=== PATIENT | female | born 1980 | race Caucasian/White ===

== ENCOUNTER 2019-03-23 09:23 | Emergency (ER) | payer OTHER ==
[2019-03-23 09:28] VITALS: BP 134/85; PULSE 82; RESP 20; TEMP 97.5
[2019-03-23 10:27] LABS: Anisocytosis Slight; Basophils % (A) 1 %; Eosinophils # (A) 0.2 k/uL (0-0.7); Eosinophils % (A) 4 %; HCT 40.9 % (34.0-46.0); Hypochromasia Marked; Lymphocytes # (A) 1.6 k/uL (1.0-4.8); Lymphocytes % (A) 27 %; MCH 21.5 pg (25.0-35.0); MCHC 29.3 g/dL (31.0-37.0); MCV 73.4 fL (80.0-100.0); Mean Platelet Volume 7.3; Microcytosis Moderate; Monocytes # (A) 0.3 k/uL (0-1.0); Monocytes % (A) 4 %; Neutrophils # (A) 3.5 k/uL (1.3-7.7); Neutrophils % (A) 61 %; Platelet Count 294 k/uL (150-450); RBC 5.58 m/uL (3.80-5.40); RDW 16.5 % (11.5-15.5); WBC 5.7 k/uL (3.8-10.6)
[2019-03-23 10:29] LABS: Appearance,Urine Cloudy (Clear); Bilirubin,Urine Negative (Negative); Blood,Urine Negative (Negative); Color,Urine Yellow; Glucose,Urine (UA) Negative (Negative); Ketones,Urine Negative (Negative); Leukocyte Esterase,Urine Negative (Negative); Mucus,Urine Many /hpf; Nitrite,Urine Negative (Negative); PH, Urine 5.5 (5.0-8.0); Protein,Urine Trace (Negative); RBC,Urine 1 /hpf (0-5); Specific Gravity,Urine 1.033 (1.001-1.035); Squamous Epithelial Cell,Urine 15 /hpf (0-4)
[2019-03-23 10:32] LABS: ALT 19 U/L (9-52); AST 23 U/L (14-36); African American GFR (CKD) >90 (>60 ml/min/1.73 sqM); Albumin 4.4 g/dL (3.5-5.0); Alkaline Phosphatase 37 U/L (38-126); Amylase 51 U/L (30-110); Anion Gap 10 mmol/L; Blood Urea Nitrogen 10 mg/dL (7-17); Calcium 9.1 mg/dL (8.4-10.2); Carbon Dioxide 22 mmol/L (22-30); Chloride 109 mmol/L (98-107); Glucose 86 mg/dL (74-99); Non-African American GFR(CKD) >90 (>60 ml/min/1.73 sqM); Potassium 4.1 mmol/L (3.5-5.1); Sodium 141 mmol/L (137-145); Total Bilirubin 0.6 mg/dL (0.2-1.3); Total Protein 7.4 g/dL (6.3-8.2)
--- NOTE | 2019-03-23 10:43 | ED ---
Abdominal Pain HPI - General Chief Complaint: Abdominal Pain Stated Complaint: Abd Pain Time Seen by Provider: 03/23/19 09:37 Source: patient, family Mode of arrival: ambulatory - History of Present Illness Initial Comments: 38yo female presenting today for chief complaint of lower pelvic bloating and cramping 1 hour. Patient states that she had severe cramping that radiated t owards her back that began 1 hour prior to arrival. Patient states she has never experienced this type of pain before. Patient states it was sharp and crampy in nature. It began in the midline pelvic region rating towards the back. Patient denies any unilateral pain. Patient states she does not believe she is but is not sure. Patient denies vaginal bleeding. Patient admits to a slight vaginal discharge. Denies fevers dysuria or urgency frequency. Her external vaginal irritation. Patient denies any upper abdominal pain fevers lack of appetite nausea vomiting diarrhea. Remaining review of systems negative upon arrival patient appears well distress. She states the pain has been resolving since she has arrived in the emergency department. - Related Data Home Medications Medication Instructions Recorded Confirmed Ibuprofen 400 mg PO Q8H PRN 03/23/19 03/23/19 Previous Rx's Medication Instructions Recorded metroNIDAZOLE 0.75% VAGINAL 1 applic VAGINAL HS 5 Days #5 tube 03/23/19 [Metrogel Vaginal] Allergies Allergy/AdvReac Type Severity Reaction Status Date / Time No Known Allergies Allergy Verified 03/23/19 10:40 Review of Systems ROS Statement: Those systems with pertinent positive or pertinent negative responses have been documented in the HPI. ROS Other: All systems not noted in ROS Statement are negative. Past Medical History Past Medical History: No Reported History History of Any Multi-Drug Resistant Organisms: None Reported Past Surgical History: No Surgical Hx Reported Past Psychological History: No Psychological Hx Reported Smoking Status: Current every day smoker Past Alcohol Use History: Occasional Past Drug Use History: Marijuana General Exam - General Exam Comments Initial Comments: General: The patient is awake and alert, in no distress, and does not appear acutely ill. Eye: +3 mm pupils are equal, round and reactive to light, extra-ocular movements are intact. No nystagmus. There is normal conjunctiva bilaterally. No signs of icterus. Cardiovascular: There is a regular rate and rhythm. No murmur, rub or gallop is appreciated. Respiratory: Lungs are clear to auscultation, respirations are non-labored, breath sounds are equal. No wheezes, stridor, rales, or rhonchi. Gastrointestinal: Soft, non-distended, midline tenderness to palpation of the pelvic region no unillateral tendenress the remaining abdomen is without masses or organomegaly noted including RLQ. There is no rebound or guarding present. Normal external exam, vaginal mucosa pink well rugated. Scant thin discharge with slight fishy odor. No internal lesions no cervical motion tenderness, adnexal tenderness. Musculoskeletal: Normal ROM, no tenderness. Strength 5/5. Sensation intact. Radial pulses equal bilaterally 2+. Neurological: A&O x 3. CN II-XII intact grossly, There are no obvious motor or sensory deficits. Coordination appears grossly intact. Speech is normal. Skin: Skin is warm and dry and no rashes or lesions are noted. Psychiatric: Cooperative, appropriate mood & affect, normal judgment. Course Vital Signs 03/23/19 09:25 Temperature 97.5 F L Pulse Rate 82 Respiratory 20 Rate Blood Pressure 134/85 O2 Sat by Pulse 99 Oximetry Medical Decision Making - Medical Decision Making 38-year-old presents for pelvic pain one hour prior to arrival. NEGATIVE FOR TORSION. THERE IS A SMALL AMOUNT OF PHYSIOLOGICAL FLUID POSSIBLY CONSISTENT WITH A RECENT RUPTURED OVARIAN CYSTS PRESENT HOWEVER NO OTHER ACUTE PROCESS. HCG NEGATIVE. NO WHITE COUNT. NO SIGNIFICANT AMOUNT OF DISCHARGE POSSIBLE CLINICAL CORRELATION WITH BACTERIAL VAGINOSIS. RAPID TRICHOMONAS IS NEGATIVE. PATIENT DENIES CONCERN FOR STI DOES NOT WANT PROPHYLACTIC TREATMENT. PATIENT'S PAIN RESOLVED IN THE EMERGENCY DEPARTMENT AT THIS TIME I FEEL PATIENT IS STABLE FOR DISCHARGE WITH RETURN PARAMETERS AND MIME ARTIST FOLLOW-UP. PATIENT WAS PROVIDED PRESCRIPTION FOR METRONIDAZOLE. Discussed case with Dr. Maxwell prior to d/c.. Patient agreeable and appears happy with plan. - Lab Data Result diagrams: 03/23/19 10:11 03/23/19 10:11 Lab Results 03/23/19 03/23/19 03/23/19 Range/Units 10:00 10:00 10:11 WBC (3.8-10.6) k/uL RBC (3.80-5.40) m/uL Hgb (11.4-16.0) gm/dL Hct (34.0-46.0) % MCV (80.0-100.0) fL MCH (25.0-35.0) pg MCHC (31.0-37.0) g/dL RDW (11.5-15.5) % Plt Count (150-450) k/uL Neutrophils % % Lymphocytes % % Monocytes % % Eosinophils % % Basophils % % Neutrophils # (1.3-7.7) k/uL Lymphocytes # (1.0-4.8) k/uL Monocytes # (0-1.0) k/uL Eosinophils # (0-0.7) k/uL Basophils # (0-0.2) k/uL Hypochromasia Anisocytosis Microcytosis Sodium 141 (137-145) mmol/L Potassium 4.1 (3.5-5.1) mmol/L Chloride 109 H (98-107) mmol/L Carbon Dioxide 22 (22-30) mmol/L Anion Gap 10 mmol/L BUN 10 (7-17) mg/dL Creatinine 0.69 (0.52-1.04) mg/dL Est GFR (CKD-EPI)AfAm >90 (>60 ml/min/1.73 sqM) Est GFR (CKD-EPI)NonAf >90 (>60 ml/min/1.73 sqM) Glucose 86 (74-99) mg/dL Calcium 9.1 (8.4-10.2) mg/dL Total Bilirubin 0.6 (0.2-1.3) mg/dL AST 23 (14-36) U/L ALT 19 (9-52) U/L Alkaline Phosphatase 37 L (38-126) U/L Total Protein 7.4 (6.3-8.2) g/dL Albumin 4.4 (3.5-5.0) g/dL Amylase 51 (30-110) U/L Lipase 63 (23-300) U/L Urine Color Yellow Urine Appearance Cloudy H (Clear) Urine pH 5.5 (5.0-8.0) Ur Specific [place] 1.033 (1.001-1.035) Urine Protein Trace H (Negative) Urine Glucose (UA) Negative (Negative) Urine Ketones Negative (Negative) Urine Blood Negative (Negative) Urine Nitrite Negative (Negative) Urine Bilirubin Negative (Negative) Urine Urobilinogen 2.0 (<2.0) mg/dL Ur Leukocyte Esterase Negative (Negative) Urine RBC 1 (0-5) /hpf Urine WBC 1 (0-5) /hpf Ur Squamous Epith Cells 15 H (0-4) /hpf Urine Mucus Many H (None) /hpf Urine HCG, Qual Not Detected (Not Detectd) Trichomonas Ag (Rapid) (Negative) 03/23/19 03/23/19 Range/Units 10:11 11:45 WBC 5.7 (3.8-10.6) k/uL RBC 5.58 H (3.80-5.40) m/uL Hgb 12.0 (11.4-16.0) gm/dL Hct 40.9 (34.0-46.0) % MCV 73.4 L (80.0-100.0) fL MCH 21.5 L (25.0-35.0) pg MCHC 29.3 L (31.0-37.0) g/dL RDW 16.5 H (11.5-15.5) % Plt Count 294 (150-450) k/uL Neutrophils % 61 % Lymphocytes % 27 % Monocytes % 4 % Eosinophils % 4 % Basophils % 1 % Neutrophils # 3.5 (1.3-7.7) k/uL Lymphocytes # 1.6 (1.0-4.8) k/uL Monocytes # 0.3 (0-1.0) k/uL Eosinophils # 0.2 (0-0.7) k/uL Basophils # 0.0 (0-0.2) k/uL Hypochromasia Marked Anisocytosis Slight Microcytosis Moderate Sodium (137-145) mmol/L Potassium (3.5-5.1) mmol/L Chloride (98-107) mmol/L Carbon Dioxide (22-30) mmol/L Anion Gap mmol/L BUN (7-17) mg/dL Creatinine (0.52-1.04) mg/dL Est GFR (CKD-EPI)AfAm (>60 ml/min/1.73 sqM) Est GFR (CKD-EPI)NonAf (>60 ml/min/1.73 sqM) Glucose (74-99) mg/dL Calcium (8.4-10.2) mg/dL Total Bilirubin (0.2-1.3) mg/dL AST (14-36) U/L ALT (9-52) U/L Alkaline Phosphatase (38-126) U/L Total Protein (6.3-8.2) g/dL Albumin (3.5-5.0) g/dL Amylase (30-110) U/L Lipase (23-300) U/L Urine Color Urine Appearance (Clear) Urine pH (5.0-8.0) Ur Specific [place] (1.001-1.035) Urine Protein (Negative) Urine Glucose (UA) (Negative) Urine Ketones (Negative) Urine Blood (Negative) Urine Nitrite (Negative) Urine Bilirubin (Negative) Urine Urobilinogen (<2.0) mg/dL Ur Leukocyte Esterase (Negative) Urine RBC (0-5) /hpf Urine WBC (0-5) /hpf Ur Squamous Epith Cells (0-4) /hpf Urine Mucus (None) /hpf Urine HCG, Qual (Not Detectd) Trichomonas Ag (Rapid) Negative (Negative) Disposition Clinical Impression: Pelvic pain, Vaginal discharge Disposition: HOME SELF-CARE Condition: Good Instructions (If sedation given, give patient instructions): Ruptured Ovarian Cyst (ED) Additional Instructions: Please use medication as discussed. Please follow-up with family doctor in the next 2 days of symptoms have not improved. Please return to emergency room if the symptoms increase or worsen or for any other concerns. Prescriptions: metroNIDAZOLE 0.75% VAGINAL [Metrogel Vaginal] 1 applic VAGINAL HS 5 Days #5 tube Is patient prescribed a controlled substance at d/c from ED?: No Referrals: None,Stated [Primary Care Provider] - 1-2 days Time of Disposition: 11:40
--- NOTE | 2019-03-23 11:22 | US ---
EXAMINATION TYPE: US transvaginal DATE OF EXAM: 03/23/2019 COMPARISON: None CLINICAL HISTORY: pelvic pain. Pelvic pain today; had IUD removed in December; Light menstrual perio ds since; TECHNIQUE: Transvaginal (TV). Transabdominal sonographic images of the pelvis were acquired. Date of LMP: 02/08/2019 EXAM MEASUREMENTS: Uterus: 10.6 x 5.8 x 5.4 cm Endometrial Stripe: 0.6 cm Right Ovary: 2.2 x 2.9 x 2.5 cm Left Ovary: 2.9 x 2.5 x 2.0 cm 1. Uterus: Anteverted; small Nabothian Cyst in cervix = 0.5 x 0.4 x 0.4cm 2. Endometrium: Within normal limits 3. Right Ovary: small follicles 4. Left Ovary: small follicles Spectral, color and waveform Doppler imaging shows good arterial and venous flow within the ovaries ; there is no evidence for ovarian torsion. 5. Bilateral Adnexa: wnl 6. Posterior cul-de-sac: free fluid seen = 1.7 x 4.7 x 2.3 x 0.523 = 9.6ml and is wnl as is less diaz n 10.0ml. IMPRESSION: Unremarkable pelvic ultrasound other than small amount of free fluid in the pelvis, likel y physiologic in nature or related to recently ruptured cyst.
[2019-03-25 14:00] LABS: N. gonorrhoeae,PCR Negative (Neg,Equiv); Neisseria Source Vagina
[2019-03-25 14:03] LABS: C. trachomatis,PCR Negative (Neg,Equiv); Chlamydia trachomatis Source Vagina
== END 2019-03-23 12:00 | disposition home or self-care (01) ==
LOC: EC 09:23
DX: N89.8 Other specified noninflammatory disorders of vagina (principal); R10.2 Pelvic and perineal pain; R14.0 Abdominal distension (gaseous); F17.200 Nicotine dependence, unspecified, uncomplicated
CPT/HCPCS: 36415; 76830; 80053; 81001; 81025; 82150; 83690; 85025; 87070; 87491; 87591; 87808; 93975; 99284

== ENCOUNTER → 2019-08-07 | Outpatient (CLI) | payer OTHER ==
--- NOTE | 2019-08-07 11:25 | US ---
EXAMINATION TYPE: Ultrasound OB <= 14 week fetus DATE OF EXAM: 08/07/2019 10:07 AM COMPARISON: NONE CLINICAL HISTORY: 39-year-old female Z36 confirm dates. EXAM PERFORMED: Transabdominal (TA) FINDINGS: EXAM MEASUREMENTS: GESTATIONAL AGE / DATING Dates by LMP: (10 weeks/3 days) EDC: 03/01/2020 Dates by First Scan: No previous this is first scan Dates by Current Scan for: (11 weeks/1 days) EDC: 02/25/2020 MATERNAL ANATOMY Uterus: 14.2 x 9.87 x 6.8 cm Right Ovary: 2.4 x 1.5 x 1.7 cm Left Ovary: 3.2 x 3.1 x 2.1 cm Post CDS / Adnexa: no free fluid Presence of free fluid: no Presence of corpus luteal cyst: left ovarian lesion with peripheral vascular flow = 1.2 x 1.8 x 1.4 c m Presence of subchorionic bleed: no GESTATION / SURVEY CRL: 4.3 cm (11 weeks/1 days) MSD: seen, not measured Yolk Sac (normal less than 6mm): 3.8 mm Heart Rate: 170 bpm Rhythm: Normal IUP: Viable IUP Date of LMP: 05/26/2019, Beta HcG (if available): Not available at this time Single live IUP measuring 11 weeks 1 day IMPRESSION: 1. Single live intrauterine with estimated gestational age of 10 weeks 3 days by LMP. [facility] is larger (11 weeks 1 day). 2. heart rate towards the upper end of the normal range at 170 BPM. Follow-up as indicated. 3. Otherwise, complete survey recommended at 18-20 weeks.
== END | disposition home or self-care (01) ==
LOC: RADUSWWP 09:39
PROVIDERS: ATTEND Obstetrics & Gynecology
DX: Z36.89 Encounter for other specified antenatal screening (principal); Z3A.11 11 weeks gestation of pregnancy
CPT/HCPCS: 76801

== ENCOUNTER 2019-12-26 19:35 | Outpatient (CLI) | payer BC ==
[2019-12-26 20:30] VITALS: BP 128/69; PULSE 86; RESP 16; TEMP 98
--- NOTE | 2020-01-13 10:06 | P.MSEPDOC ---
Presenting Problems - Arrival Data Date of Arrival on Unit: 12/26/19 Time of Arrival on Unit: 19:33 Mode of Transport: Ambulatory - Complaint OB-Reason for Admission/Chief Complaint: Pain Comment: Intermittant cramping for the last 3 days. Medical History - Information : 4 Para: 3 Term: 3 : 0 Abortions: Spontaneous or Elective: 0 Number of Living Children: 3 - Gestational Age Gestational Age by ARIEL (wks/days): 30 Weeks and 4 Days - History Complications: Smoker Review of Systems - Review of Systems Constitutional: No problems Breast: No problems ENT: No problems Cardiovascular: No problems Respiratory: No problems Gastrointestinal: No problems Genitourinary: No problems Musculoskeletal: No problems Neurological: No problems Skin: No problems Vital Signs - Temperature Temperature: 98.0 F Temperature Source: Oral - Pulse Right Brachial Pulse Rate: 86 Pulse Assessment Method: Automatic Cuff - Respirations Respiratory Rate: 16 Oxygen Delivery Method: Room Air O2 Sat by Pulse Oximetry: 98 - Blood Pressure Right Arm Blood Pressure: 128/69 Blood Pressure Mean: 88 Blood Pressure Source: Automatic Cuff Medical Screen Scoring (Pre) - Cervical Exam Dilation: 0 cm = 0 Membranes: Intact - Uterine Contractions Frequency: N/A Duration: N/A Intensity: N/A - Maternal Vital Signs Maternal Temperature: N/A Maternal Blood Pressure: N/A Signs of Preeclampsia: N/A Maternal Respirations: N/A - Maternal Trauma Maternal Trauma: N/A - Assessment - Baby A Baseline FHR: 130 Heart Rate - NICHD Category: Category I (Normal) = 0 NST: Reactive Position: N/A Station: N/A - Total Score - Baby A Total Score - Baby A: 0 - Total Score - Baby B Total Score - Baby B: 0 - Total Score - Baby C Total Score - Baby C: 0 - Level of Risk - Baby A Level of Risk - Baby A: Low (0-5) - Level of Risk - Baby B Level of Risk - Baby B: Low (0-5) - Level of Risk - Baby C Level of Risk - Baby C: Low (0-5) Physician Notification (Pre) - Physician Notified Physician Notified Date: 12/26/19 Physician Notified Time: 20:05 New Order Received: Yes - Notification Comment Comment: Dr. Ibarra given report on pt. Pt c/o of cramping intermittantly for the last 3 days. VS WNL. Reactive nst. No contractions noted per pt or toco during monitoring. FFN collected, vag exam performed. Vag exam of closed/thick/high. Orders recieved to discharge pt to home. Disposition - Disposition OB Disposition: Discharge to home Discharge Date: 12/26/19 Discharge Time: 20:14 I agree with the RN Medical Screening Exam: Yes Risk & Benefit of care provided described in d/c instruction: Yes Diagnosis: FALSE LABOR BEFORE 37 COMPLETED WEEKS OF GEST, THIRD TRI
== END 2019-12-26 20:14 | disposition home or self-care (01) ==
LOC: FBPOP 19:35
PROVIDERS: ATTEND Obstetrics & Gynecology
DX: O47.03 False labor before 37 completed weeks of gestation, third trimester (principal); O99.333 Smoking (tobacco) complicating pregnancy, third trimester; F17.200 Nicotine dependence, unspecified, uncomplicated; Z3A.30 30 weeks gestation of pregnancy
CPT/HCPCS: 59025; 99213

== ENCOUNTER 2020-02-26 05:55 | Inpatient (IN) | payer BC, OTHER ==
--- NOTE | 2020-02-25 10:39 | P.HPOB ---
History of Present Illness H&P Date: 02/25/20 Chief Complaint: Requested induction of labor. This patient is a pleasant 39 yr female EDC 03/01/2020 estimated gestational age 39 2/7 weeks who presents to L&D for requested induction of labor. has been complicated by advanced maternal age. She has had a normal Materni T21 (46 X,Y) and also normal Level III ultrasound. She also has a history of a previous child (son) who was had congenital absence of Corpus Callosum, level III was normal and does not appear to be the case this . History of positive GBS with previous (negative this ). testing has been normal. Patient is uncomfortable and desires induction. Review of Systems Genitourinary: Reports Menstruation: Reports amenorrhea Past Medical History Past Medical History: No Reported History History of Any Multi-Drug Resistant Organisms: None Reported Past Surgical History: No Surgical Hx Reported Past Anesthesia/Blood Transfusion Reactions: No Reported Reaction Smoking Status: Former smoker Past Alcohol Use History: None Reported Past Drug Use History: None Reported Medications and Allergies Home Medications Medication Instructions Recorded Confirmed Type Pnv,Calcium 72/Iron/Folic Acid 1 tab PO DAILY 12/26/19 12/26/19 History [ Plus Tablet] Allergies Allergy/AdvReac Type Severity Reaction Status Date / Time No Known Allergies Allergy Verified 12/26/19 19:41 Exam - OBG Physical Exam Abdomen: bowel sounds normal, no diffuse tenderness, no bruit present, no guarding noted, no hepatomegaly, no splenomegaly, no mass Vulva: both: normal Vagina: normal moisture, no discharge Cervix: no lesion (Cervix in the office 1cm/thick), no discharge Uterus: enlarged (Fundal height is 39cm) Results bloodwork: A positive, Rubella Immune, RPR-HepB neg, glucola 102, GBS negative. Ultrasound 01/30 shows Vtx 6#10 (81%) Normal. Assessment and Plan Assessment: This is a pleasant 39 yr female EDC 03/01/2020 estimated gestational age 39 2/7 weeks who presents for requested induction of labor. GBS was negative this , but does have a history of positive GBS in a past , therefore will treat prophylactically. Plan is induction of labor and anticipate vaginal delivery. (1) 39 weeks gestation of Status: Acute Code(s): Z3A.39 - 39 WEEKS GESTATION OF SNOMED Code(s): 64904768 (2) Elderly multigravida in third trimester Status: Acute Code(s): O09.523 - SUPERVISION OF ELDERLY MULTIGRAVIDA, THIRD TRIMESTER SNOMED Code(s): 723776649 (3) Elective induction of labor planned Status: Acute Code(s): HGJ9887 - SNOMED Code(s): 871305244
[2020-02-26] MEDS ORDERED: LIDOCAINE 0.5% (PF) 5 MG/ML (50 ML SDV) SQ PRN (06:04)
[2020-02-26] MEDS ORDERED: CARBOPROST TROMETHAMINE 250 MCG/ML 1 ML AMP IM PRN (06:04)
[2020-02-26] MEDS ORDERED: AMPICILLIN 2,000 MG in SODIUM CHLORIDE 0.9% 100 ML IVPB STA (06:04)
[2020-02-26] MEDS ORDERED: TERBUTALINE 1 MG/ML VIAL SQ PRN (06:04)
[2020-02-26] MEDS ORDERED: OXYTOCIN 10 UNIT/ML 1 ML VIAL IM PRN (06:04)
[2020-02-26] MEDS ORDERED: METHYLERGONOVINE 0.2 MG/ML 1 ML AMP IM PRN (06:04)
[2020-02-26] MEDS ORDERED: OXYTOCIN 30 UNITS/500 ML NS 30 UNIT in SALINE 1 500ML.BAG IV SCH (06:04)
[2020-02-26] MEDS: LACTATED RINGERS 1,000 ML IV SCH ×3 (06:12→14:05)
[2020-02-26 06:16] LABS: Basophils # (A) 0.1 k/uL (0-0.2); Basophils % (A) 1 %; Eosinophils # (A) 0.2 k/uL (0-0.7); Eosinophils % (A) 2 %; HCT 37.5 % (34.0-46.0); HGB 12.2 gm/dL (11.4-16.0); Hypochromasia Slight; Lymphocytes # (A) 2.1 k/uL (1.0-4.8); Lymphocytes % (A) 20 %; MCHC 32.6 g/dL (31.0-37.0); MCV 85.7 fL (80.0-100.0); Mean Platelet Volume 10.2; Monocytes # (A) 0.5 k/uL (0-1.0); Monocytes % (A) 5 %; Neutrophils # (A) 7.8 k/uL (1.3-7.7); Neutrophils % (A) 71 %; Platelet Count 162 k/uL (150-450); RBC 4.37 m/uL (3.80-5.40); RDW 14.6 % (11.5-15.5); WBC 10.9 k/uL (3.8-10.6)
[2020-02-26 08:00] VITALS: RESP 16
[2020-02-26] MEDS: AMPICILLIN 1,000 MG in SODIUM CHLORIDE 0.9% 50 ML IVPB SCH ×3 (10:07→18:44)
[2020-02-26] MEDS ORDERED: BUTORPHANOL 1 MG/ML 1 ML VIAL IV PRN (12:49)
[2020-02-26] MEDS ORDERED: ROPIVACAINE 100 MG, fentaNYL (PF) 200 MCG in SODIUM CHLORIDE 0.9% 76 ML EPIDURAL ONE (14:18)
--- NOTE | 2020-02-26 18:16 | P.PROBDLV ---
Vaginal Delivery Note - . Vaginal Delivery Note: Normal vaginal delivery viable male infant Apgars 9 and 9 delivery time is 1742 hrs. Please see dictated H&P for intimate details of this patient's admission. Brief summary this is a pleasant 39-year-old 5 para 3 female 39-3/7 weeks gestation admitted to labor and delivery for requested induction of labor. On admission patient is 1-2 cm dilated and has artificial rupture membranes for clear fluid. Patient is given IV antibiotics due to a history of positive strep in a previous . Labor is induced with Pitocin. Patient progresses she does get some Stadol for pain control and then request an epidural when she is about 4 cm dilated. After this patient starts to go much faster and gets to complete. She pushes the head to the perineum in about 5 pushes. While she was it is evident that she has a tight perineum and therefore midline episiotomy is made. We then have controlled delivery of the infant's head over the perineum. At this time the head is tight to the perineum consistent with the "turtle sign". Patient is placed in Gwen position and at this time we signal for help. Patient this time is encouraged to breathe. With this done it is evident the shoulder is dislodging with Gwen and then with pushing she is able to deliver the anterior shoulder and posterior shoulder and rest this 's body. This is a vigorous viable male infant Apgars 9 and 9 delivery time is 1742 hrs. has spontaneous respirations and good cry and grossly appears normal. has some slight bruising of the anterior arm but there is no evidence of any deficits and both arms are moving with complete normal range of motion. After delivery of the is laid on the mother's abdomen. After the umbilical cord is done pulsating is doubly clamped and then cut. It appears to be trivascular. The placenta is then spontaneously delivered intact. Estimated blood loss is 250 mL. Inspection of perineum shows a first-degree posterior laceration was repaired with the usual fashion using a 3-0 Vicryl. Is also small left vaginal laceration that has 2 interrupted sutures in excellent reapproximation is noted. All counts are correct 3. Deliverie is complicated by a mild shoulder dystocia, relieved with Gwen maneuver, without sequela. Infant and mother stable delivery room.
[2020-02-26] MEDS ORDERED: diphenhydrAMINE 25 MG CAP PO PRN (18:17)
[2020-02-26] MEDS ORDERED: ZOLPIDEM 5 MG TAB PO PRN (18:17)
[2020-02-26] MEDS ORDERED: ACETAMINOPHEN TAB 325 MG TAB PO PRN (18:17)
[2020-02-26] MEDS ORDERED: diphenhydrAMINE 50 MG/ML 1 ML VIAL IVP PRN (18:17)
[2020-02-26] MEDS ORDERED: BENZOCAINE/MENTHOL SPRAY 1 GM/SPRAY AEROSOL TOPICAL PRN (18:17)
[2020-02-26] MEDS ORDERED: OXYTOCIN 20 UNITS/1000 ML NS 1,000 ML IV SCH (18:17)
[2020-02-26] MEDS ORDERED: SIMETHICONE 80 MG CHEWABLE PO PRN (18:17)
[2020-02-26] MEDS ORDERED: bisacodyL 10 MG SUPP RECTAL PRN (18:17)
[2020-02-26] MEDS ORDERED: LANOLIN CREAM 5 GM TUBE TOPICAL PRN (18:17)
[2020-02-26] MEDS ORDERED: HYDROCORTISONE 2.5% RECTAL CREAM 30 GM TUBE RECTAL PRN (18:17)
[2020-02-26] MEDS: IBUPROFEN 600 MG TAB PO PRN (18:46)
[2020-02-27] MEDS: SENNOSIDES-DOCUSATE SODIUM 1 EACH TAB PO SCH ×3 (01:13→08:26)
[2020-02-27] MEDS: IBUPROFEN 600 MG TAB PO PRN (05:43)
--- NOTE | 2020-02-27 06:18 | P.PNOBGVD ---
Subjective - Subjective Patient reports: Reports appetite normal, Reports voiding normally, Reports pain well controlled, Reports ambulating normally : doing well Objective - Latest Vital Signs Latest vital signs: Vital Signs Temp Pulse Resp BP Pulse Ox 02/27/20 04:00 98.2 F 86 16 117/64 98 02/27/20 00:00 98.1 F 89 16 116/71 99 02/26/20 19:54 90 16 121/63 02/26/20 19:24 104 H 16 129/80 100 02/26/20 18:54 97 16 114/62 02/26/20 18:39 93 16 124/64 02/26/20 18:24 97 16 127/71 02/26/20 18:09 96 16 124/60 02/26/20 17:54 105 H 16 139/63 02/26/20 07:30 96 F L 94 16 132/72 100 Intake and Output 02/26/20 02/26/20 02/27/20 14:59 22:59 06:59 Intake Total 1000 499.5 Balance 1000 499.5 Intake: IV 1000 Intake, IV Titration 499.5 Amount Oxytocin 20 Units/1000 ml 499.5 Ns 1,000 ml @ Per Protocol IV .Q0M [facility] Rx#: [id number] Other: # Voids 1 1 Weight 87.543 kg - Exam Lungs: bilateral: normal Chest: Normal S1, Normal S2 Extremities: Present: normal Abdomen: Present: normal appearance, soft Uterus: Present: normal, firm Assessment and Plan Assessment: Post day #1. Patient is resting without complaints and wishes to go home. Vital signs are stable she's afebrile. Uterus is firm nontender and she is having normal lochia. Impression is normal course. Plan is to continue routine care discharge home later today. (1) 39 weeks gestation of Current Visit: No Status: Acute Code(s): Z3A.39 - 39 WEEKS GESTATION OF SNOMED Code(s): 47229141 (2) Elderly multigravida in third trimester Current Visit: No Status: Acute Code(s): O09.523 - SUPERVISION OF ELDERLY MULTIGRAVIDA, THIRD TRIMESTER SNOMED Code(s): 606297180 (3) Elective induction of labor planned Current Visit: No Status: Acute Code(s): PCV1173 - SNOMED Code(s): 138988515
--- NOTE | 2020-02-27 06:25 | P.DS ---
Providers Date of admission: 02/26/20 05:55 Expected date of discharge: 02/27/20 Attending physician: Waylon Christian Primary care physician: Stated None - Discharge Diagnosis(es) (1) 39 weeks gestation of Current Visit: No Status: Acute (2) Elderly multigravida in third trimester Current Visit: No Status: Acute (3) Elective induction of labor planned Current Visit: No Status: Acute Hospital Course: Please see dictated H&P for intimate details of this patient's admission. Brief summary this is a pleasant 39-year-old 5 para 3 female 39-3/7 weeks gestation admitted to labor and delivery for requested induction of labor. Patient was on have a vaginal delivery viable male infant. Please see dictated delivery note. day #1 patient's felt be stable for discharge home wishes to go home. Patient's discharge home follow up with me in 6 weeks Procedures: Normal vaginal delivery. Patient Condition at Discharge: Good Plan - Discharge Summary New Discharge Prescriptions: New Ibuprofen [Motrin] 600 mg PO Q6HR PRN #40 tab PRN Reason: Mild Pain Or Fever >= 100.5 No Action Pnv,Calcium 72/Iron/Folic Acid [ Plus Tablet] 1 tab PO DAILY Discharge Medication List Pnv,Calcium 72/Iron/Folic Acid [ Plus Tablet] 1 tab PO DAILY 12/26/19 [History] Ibuprofen [Motrin] 600 mg PO Q6HR PRN #40 tab 02/27/20 [Rx] Follow up Appointment(s)/Referral(s): Waylon Christian MD [STAFF PHYSICIAN] - 04/08/20 9:15 am Patient Instructions/Handouts: Vaginal Delivery (DC) Activity/Diet/Wound Care/Special Instructions: No intercourse or anything per vagina for 6 weeks. Please call if any fever, chills, excessive vaginal bleeding, and/or abdominal pain. Discharge Disposition: HOME SELF-CARE
[2020-02-27 17:28] VITALS: BP 134/73; PULSE 84; TEMP 98.8
== END 2020-02-27 18:20 | disposition home or self-care (01) | DRG 807 ==
LOC: 4FBP 05:55
PROVIDERS: ADMIT Obstetrics & Gynecology; ATTEND Obstetrics & Gynecology
PROC: 10E0XZZ Delivery of Products of Conception, External Approach (ICD-10-PCS; principal; 2020-02-26)
PROC: 0HQ9XZZ Repair Perineum Skin, External Approach (ICD-10-PCS; principal; 2020-02-26)
PROC: 00HU33Z Insertion of Infusion Device into Spinal Canal, Percutaneous Approach (ICD-10-PCS; principal; 2020-02-26)
PROC: 3E0R3BZ Introduction of Anesthetic Agent into Spinal Canal, Percutaneous Approach (ICD-10-PCS; principal; 2020-02-26)
DX: O66.0 Obstructed labor due to shoulder dystocia (principal); Z37.0 Single live birth; O70.0 First degree perineal laceration during delivery; Z3A.39 39 weeks gestation of pregnancy; Z87.891 Personal history of nicotine dependence
CPT/HCPCS: 85025; 86850; 86900; 86901

== ENCOUNTER 2022-09-15 00:48 | Inpatient (IN) | payer BC, MEDICAID, OTHER ==
[2022-09-15] MEDS ORDERED: SODIUM CHLORIDE 0.9% 1,000 ML IV STA (01:13)
--- NOTE | 2022-09-15 01:18 | ED ---
Overdose HPI - General Chief Complaint: Overdose Stated Complaint: ETOH,poss overdose Time Seen by Provider: 09/15/22 01:04 Source: patient, family, RN notes reviewed Mode of arrival: wheelchair Limitations: no limitations - History of Present Illness Initial Comments: This is a 42-year-old female who presents to the emergency department for alcohol use, intentional overdose, and suicidal ideations. Patient states that she had two pints of peppermint bark liquor today. She then proceeded to take 10 Seroquel tablets. These were not hers, these were her son's and they were left over from an old prescription. She is unsure what the dose of these were. She was doing this in an attempt to take her own life. States that she's had problems with suicidal ideations and depression on and off for 2 years as a result of depression. She is taking an antidepressant, however she cannot recall the name of it. Not currently seeing a counselor. Denies any history of suicide attempts or psychiatric hospitalizations. States that she currently feels stupid and is mad that she said anything to her family about what she did. Denies any homicidal ideations or auditory/visual hallucinations. Denies any fevers, chills, sore throat, cough, dyspnea, chest pain, palpitations, abdominal pain, nausea, vomiting, diarrhea, back pain, or headaches. MD Complaint: intentional overdose Intent: suicide attempt Associated Symptoms: depression Treatments Prior to Arrival: none - Related Data Home Medications Medication Instructions Recorded Confirmed No Known Home Medications 09/15/22 09/15/22 Allergies Allergy/AdvReac Type Severity Reaction Status Date / Time No Known Allergies Allergy Verified 09/15/22 08:19 Review of Systems ROS Statement: Those systems with pertinent positive or pertinent negative responses have been documented in the HPI. ROS Other: All systems not noted in ROS Statement are negative. Past Medical History Past Medical History: No Reported History History of Any Multi-Drug Resistant Organisms: None Reported Past Surgical History: No Surgical Hx Reported Past Anesthesia/Blood Transfusion Reactions: No Reported Reaction Past Psychological History: Depression Smoking Status: Former smoker Past Alcohol Use History: None Reported Past Drug Use History: None Reported - Past Family History Mother Family Medical History: Cancer, Hypertension General Exam Limitations: no limitations General appearance: alert, other (tearful) Head exam: Present: atraumatic, normocephalic, normal inspection Respiratory exam: Present: normal lung sounds bilaterally. Absent: respiratory distress, wheezes, rales, rhonchi, stridor Cardiovascular Exam: Present: normal rhythm, tachycardia GI/Abdominal exam: Present: soft, normal bowel sounds. Absent: distended, tenderness, guarding, rebound, rigid Neurological exam: Present: alert, oriented X3, CN II-XII intact Psychiatric exam: Present: depressed, flat affect, suicidal ideation, other (tearful). Absent: homicidal ideation Skin exam: Present: warm, dry, intact, normal color. Absent: rash Course Vital Signs 09/15/22 09/15/22 09/15/22 00:57 02:00 02:08 Temperature 98 F Pulse Rate 112 H 101 H 100 Respiratory 14 29 H 16 Rate Blood Pressure 136/79 160/104 150/92 O2 Sat by Pulse 98 97 98 Oximetry 09/15/22 06:00 Temperature Pulse Rate 93 Respiratory 18 Rate Blood Pressure 110/78 O2 Sat by Pulse 95 Oximetry Medical Decision Making - Medical Decision Making This is a 42-year-old female who presents to the emergency department for an intentional overdose and psychiatric evaluation. Was pt. sent in by a medical professional or institution? @ -No Did you speak to anyone other than the patient for history? @ -No Did you review nursing and triage notes? @ -Yes, and I agree, it is accurate with regards to the patient's symptoms. Were old charts reviewed? @ -No Differential Diagnosis? @ -Differential Mental Health: Depression, anxiety, bipolar, psychosis, schizophrenia, borderline personality, situational depression, adjustment disorder, behavioral disorder, brain tumor, malingering, substance abuse, encephalopathy, medication reaction, dementia, hyp othyroidism, degenerative neurologic disorder, lupus.... This is not meant to be all-inclusive list EKG interpreted by me (3pts min.)? @ -Sinus rhythm. Ventricular rate 95 bpm, CA interval 159 ms, QRS duration 99 ms, QTC 412 ms. X-rays interpreted by me (1pt min.)? @ -Not obtained CT interpreted by me (1pt min.)? @ -Not obtained U/S interpreted by me (1pt. min.)? @ -Not obtained What testing was considered but not performed? (CT, X-rays, U/S, labs)? Why? @ -None What meds were considered but not given? Why? @ -None Did you discuss the management of the patient with other professionals? @ -No Did you reconcile home meds? @ -No Was smoking cessation discussed for >3mins.? @ -No Was critical care preformed (if so, how long)? @ -No Were there social determinants of health that impacted care today? How? (Homelessness, low income, unemployed, alcoholism, drug addiction, transportation, low edu. Level, literacy, decrease access to med. care, residential, rehab)? @ -No Was there de-escalation of care discussed even if they declined? (Discuss DNR or withdrawal of care, Hospice)? @ -No What co-morbidities impacted this encounter? (DM, HTN, Smoking, COPD, CAD, Cancer, CVA, Hep., AIDS, mental health diagnosis, sleep apnea, morbid obesity)? @ -Depression Was patient admitted / discharged? @ -Poison control was immediately contacted by the RN. They advised an EKG, blood work, and observation for 6 hours. However, the patient's blood alcohol level was 252, and she will not be sober for 10 hours at around 10:45 AM. Lab work does reveal hypokalemia, and she was subsequently given 40 mEq of K-Dur. 100 mg of IM thiamine and 1L bolus of IV fluids administered as well. Patient was found to be very restless in the examination room and she was subsequently given 2 mg of Ativan. Afterward she was resting comfortably in no signs of any distress. Case discussed with Dr. Murrell, who will sign out the case to the morning ED attending, given that the patient will not be sober until 10:45 AM, at which point she can be evaluated by EPS. Undiagnosed new problem with uncertain prognosis? @ -None Drug Therapy requiring intensive monitoring for toxicity (Heparin, Nitro, Insulin, Cardizem)? @ -None Were any procedures done? @ -None Diagnosis/symptom? @ -Alcohol intoxication, intentional overdose, suicidal ideation Acute, or Chronic, or Acute on Chronic? @ -Acute Uncomplicated (without systemic symptoms) or Complicated (systemic symptoms)? @ -Complicated Side effects of treatment? @ -None Exacerbation, Progression, or Severe Exacerbation] @ -Not applicable Poses a threat to life or bodily function? @ -Yes - Lab Data Result diagrams: 09/15/22 01:23 09/15/22 01:23 Lab Results 09/15/22 09/15/22 09/15/22 Range/Units 01: 01: 01: WBC 4.9 (3.8-10.6) k/uL RBC 5.36 (3.80-5.40) m/uL Hgb 12.1 (11.4-16.0) gm/dL Hct 38.1 (34.0-46.0) % MCV 71.0 L (80.0-100.0) fL MCH 22.5 L (25.0-35.0) pg MCHC 31.7 (31.0-37.0) g/dL RDW 16.5 H (11.5-15.5) % Plt Count 234 (150-450) k/uL MPV 8.6 Neutrophils % 36 % Lymphocytes % 48 % Monocytes % 4 % Eosinophils % 8 % Basophils % 1 % Neutrophils # 1.7 (1.3-7.7) k/uL Lymphocytes # 2.3 (1.0-4.8) k/uL Monocytes # 0.2 (0-1.0) k/uL Eosinophils # 0.4 (0-0.7) k/uL Basophils # 0.0 (0-0.2) k/uL Hypochromasia Slight Anisocytosis Slight Microcytosis Moderate PT (9.0-12.0) sec INR (<1.2) Sodium (137-145) mmol/L Potassium (3.5-5.1) mmol/L Chloride (98-107) mmol/L Carbon Dioxide (22-30) mmol/L Anion Gap mmol/L BUN (7-17) mg/dL Creatinine (0.52-1.04) mg/dL Est GFR (CKD-EPI)AfAm (>60 ml/min/1.73 sqM) Est GFR (CKD-EPI)NonAf (>60 ml/min/1.73 sqM) Glucose (74-99) mg/dL Plasma Lactic Acid Mauro (0.7-2.0) mmol/L Calcium (8.4-10.2) mg/dL Total Bilirubin (0.2-1.3) mg/dL AST (14-36) U/L ALT (4-34) U/L Alkaline Phosphatase (38-126) U/L Troponin I (0.000-0.034) ng/mL Total Protein (6.3-8.2) g/dL Albumin (3.5-5.0) g/dL Urine Color Colorless Urine Appearance Clear (Clear) Urine pH 6.5 (5.0-8.0) Ur Specific Sycamore 1.006 (1.001-1.035) Urine Protein Negative (Negative) Urine Glucose (UA) Negative (Negative) Urine Ketones Negative (Negative) Urine Blood Negative (Negative) Urine Nitrite Negative (Negative) Urine Bilirubin Negative (Negative) Urine Urobilinogen <2.0 (<2.0) mg/dL Ur Leukocyte Esterase Negative (Negative) Urine HCG, Qual Not Detected (Not Detectd) Salicylates mg/dL Urine Opiates Screen Not Detected (NotDetected) Ur Oxycodone Screen Not Detected (NotDetected) Urine Methadone Screen Not Detected (NotDetected) Ur Propoxyphene Screen Not Detected (NotDetected) Acetaminophen ug/mL Ur Barbiturates Screen Not Detected (NotDetected) U Tricyclic Antidepress Detected H (NotDetected) Ur Phencyclidine Scrn Not Detected (NotDetected) Ur Amphetamines Screen Not Detected (NotDetected) U Methamphetamines Scrn Not Detected (NotDetected) U Benzodiazepines Scrn Not Detected (NotDetected) Urine Cocaine Screen Not Detected (NotDetected) U Marijuana (THC) Screen Not Detected (NotDetected) Serum Alcohol mg/dL Coronavirus (PCR) (Not Detectd) 09/15/22 09/15/22 09/15/22 Range/Units 01:23 01:23 01:23 WBC (3.8-10.6) k/uL RBC (3.80-5.40) m/uL Hgb (11.4-16.0) gm/dL Hct (34.0-46.0) % MCV (80.0-100.0) fL MCH (25.0-35.0) pg MCHC (31.0-37.0) g/dL RDW (11.5-15.5) % Plt Count (150-450) k/uL MPV Neutrophils % % Lymphocytes % % Monocytes % % Eosinophils % % Basophils % % Neutrophils # (1.3-7.7) k/uL Lymphocytes # (1.0-4.8) k/uL Monocytes # (0-1.0) k/uL Eosinophils # (0-0.7) k/uL Basophils # (0-0.2) k/uL Hypochromasia Anisocytosis Microcytosis PT 10.2 (9.0-12.0) sec INR 1.0 (<1.2) Sodium 145 (137-145) mmol/L Potassium 3.2 L (3.5-5.1) mmol/L Chloride 111 H (98-107) mmol/L Carbon Dioxide 18 L (22-30) mmol/L Anion Gap 16 mmol/L BUN 6 L (7-17) mg/dL Creatinine 0.72 (0.52-1.04) mg/dL Est GFR (CKD-EPI)AfAm >90 (>60 ml/min/1.73 sqM) Est GFR (CKD-EPI)NonAf >90 (>60 ml/min/1.73 sqM) Glucose 110 H (74-99) mg/dL Plasma Lactic Acid Mauro 2.0 (0.7-2.0) mmol/L Calcium 8.5 (8.4-10.2) mg/dL Total Bilirubin 0.2 (0.2-1.3) mg/dL AST 26 (14-36) U/L ALT 19 (4-34) U/L Alkaline Phosphatase 65 (38-126) U/L Troponin I (0.000-0.034) ng/mL Total Protein 7.0 (6.3-8.2) g/dL Albumin 4.2 (3.5-5.0) g/dL Urine Color Urine Appearance (Clear) Urine pH (5.0-8.0) Ur Specific Sycamore (1.001-1.035) Urine Protein (Negative) Urine Glucose (UA) (Negative) Urine Ketones (Negative) Urine Blood (Negative) Urine Nitrite (Negative) Urine Bilirubin (Negative) Urine Urobilinogen (<2.0) mg/dL Ur Leukocyte Esterase (Negative) Urine HCG, Qual (Not Detectd) Salicylates <1.0 mg/dL Urine Opiates Screen (NotDetected) Ur Oxycodone Screen (NotDetected) Urine Methadone Screen (NotDetected) Ur Propoxyphene Screen (NotDetected) Acetaminophen <10.0 ug/mL Ur Barbiturates Screen (NotDetected) U Tricyclic Antidepress (NotDetected) Ur Phencyclidine Scrn (NotDetected) Ur Amphetamines Screen (NotDetected) U Methamphetamines Scrn (NotDetected) U Benzodiazepines Scrn (NotDetected) Urine Cocaine Screen (NotDetected) U Marijuana (THC) Screen (NotDetected) Serum Alcohol 252 H* mg/dL Coronavirus (PCR) (Not Detectd) 09/15/22 09/15/22 Range/Units 01:23 12:43 WBC (3.8-10.6) k/uL RBC (3.80-5.40) m/uL Hgb (11.4-16.0) gm/dL Hct (34.0-46.0) % MCV (80.0-100.0) fL MCH (25.0-35.0) pg MCHC (31.0-37.0) g/dL RDW (11.5-15.5) % Plt Count (150-450) k/uL MPV Neutrophils % % Lymphocytes % % Monocytes % % Eosinophils % % Basophils % % Neutrophils # (1.3-7.7) k/uL Lymphocytes # (1.0-4.8) k/uL Monocytes # (0-1.0) k/uL Eosinophils # (0-0.7) k/uL Basophils # (0-0.2) k/uL Hypochromasia Anisocytosis Microcytosis PT (9.0-12.0) sec INR (<1.2) Sodium (137-145) mmol/L Potassium (3.5-5.1) mmol/L Chloride (98-107) mmol/L Carbon Dioxide (22-30) mmol/L Anion Gap mmol/L BUN (7-17) mg/dL Creatinine (0.52-1.04) mg/dL Est GFR (CKD-EPI)AfAm (>60 ml/min/1.73 sqM) Est GFR (CKD-EPI)NonAf (>60 ml/min/1.73 sqM) Glucose (74-99) mg/dL Plasma Lactic Acid Mauro (0.7-2.0) mmol/L Calcium (8.4-10.2) mg/dL Total Bilirubin (0.2-1.3) mg/dL AST (14-36) U/L ALT (4-34) U/L Alkaline Phosphatase (38-126) U/L Troponin I <0.012 (0.000-0.034) ng/mL Total Protein (6.3-8.2) g/dL Albumin (3.5-5.0) g/dL Urine Color Urine Appearance (Clear) Urine pH (5.0-8.0) Ur Specific Sycam[place] (1.001-1.035) Urine Protein (Negative) Urine Glucose (UA) (Negative) Urine Ketones (Negative) Urine Blood (Negative) Urine Nitrite (Negative) Urine Bilirubin (Negative) Urine Urobilinogen (<2.0) mg/dL Ur Leukocyte Esterase (Negative) Urine HCG, Qual (Not Detectd) Salicylates mg/dL Urine Opiates Screen (NotDetected) Ur Oxycodone Screen (NotDetected) Urine Methadone Screen (NotDetected) Ur Propoxyphene Screen (NotDetected) Acetaminophen ug/mL Ur Barbiturates Screen (NotDetected) U Tricyclic Antidepress (NotDetected) Ur Phencyclidine Scrn (NotDetected) Ur Amphetamines Screen (NotDetected) U Methamphetamines Scrn (NotDetected) U Benzodiazepines Scrn (NotDetected) Urine Cocaine Screen (NotDetected) U Marijuana (THC) Screen (NotDetected) Serum Alcohol mg/dL Coronavirus (PCR) Not Detected (Not Detectd) Disposition Clinical Impression: Suicidal behavior with attempted self-injury, Depression Disposition: ADMITTED IP TO THIS HOSP
[2022-09-15 01:33] LABS: Anisocytosis Slight; Basophils % (A) 1 %; Eosinophils # (A) 0.4 k/uL (0-0.7); Eosinophils % (A) 8 %; HCT 38.1 % (34.0-46.0); HGB 12.1 gm/dL (11.4-16.0); Hypochromasia Slight; Lymphocytes # (A) 2.3 k/uL (1.0-4.8); Lymphocytes % (A) 48 %; MCH 22.5 pg (25.0-35.0); MCHC 31.7 g/dL (31.0-37.0); Mean Platelet Volume 8.6; Microcytosis Moderate; Monocytes # (A) 0.2 k/uL (0-1.0); Monocytes % (A) 4 %; Neutrophils # (A) 1.7 k/uL (1.3-7.7); Neutrophils % (A) 36 %; Platelet Count 234 k/uL (150-450); RBC 5.36 m/uL (3.80-5.40); RDW 16.5 % (11.5-15.5); WBC 4.9 k/uL (3.8-10.6)
[2022-09-15 01:41] LABS: ALT 19 U/L (4-34); AST 26 U/L (14-36); Acetaminophen <10.0 ug/mL; African American GFR (CKD) >90 (>60 ml/min/1.73 sqM); Albumin 4.2 g/dL (3.5-5.0); Alkaline Phosphatase 65 U/L (38-126); Anion Gap 16 mmol/L; Blood Urea Nitrogen 6 mg/dL (7-17); Calcium 8.5 mg/dL (8.4-10.2); Carbon Dioxide 18 mmol/L (22-30); Chloride 111 mmol/L (98-107); Glucose 110 mg/dL (74-99); Non-African American GFR(CKD) >90 (>60 ml/min/1.73 sqM); Potassium 3.2 mmol/L (3.5-5.1); Salicylate <1.0 mg/dL; Sodium 145 mmol/L (137-145); Total Bilirubin 0.2 mg/dL (0.2-1.3)
[2022-09-15 01:45] LABS: Alcohol 252 mg/dL; Prothrombin Time 10.2 sec (9.0-12.0)
[2022-09-15] MEDS ORDERED: POTASSIUM CHLORIDE ER 20 MEQ TAB.ER PO STA (01:57)
[2022-09-15] MEDS ORDERED: THIAMINE 100 MG/ML 2 ML VIAL IM STA (01:58)
[2022-09-15] MEDS ORDERED: LORazepam 2 MG/ML INJ IV STA ×3 (02:53→04:28)
[2022-09-15 13:12] LABS: Appearance,Urine Clear (Clear); Bilirubin,Urine Negative (Negative); Blood,Urine Negative (Negative); Color,Urine Colorless; Glucose,Urine (UA) Negative (Negative); Ketones,Urine Negative (Negative); Leukocyte Esterase,Urine Negative (Negative); Nitrite,Urine Negative (Negative); PH, Urine 6.5 (5.0-8.0); Protein,Urine Negative (Negative); Specific Gravity,Urine 1.006 (1.001-1.035); Urobilinogen,Urine <2.0 mg/dL (<2.0)
[2022-09-15 13:27] LABS: Amphetamine Screen,Urine Not Detected (NotDetected); Benzodiazepines Screen,Urine Not Detected (NotDetected); Cocaine Screen,Urine Not Detected (NotDetected); Opiate Screen,Urine Not Detected (NotDetected); Phencyclidine Screen,Urine Not Detected (NotDetected); Tricyclic Antidepressant,Urine Detected (NotDetected); Urn Cannabinoid Scrn Not Detected (NotDetected)
[2022-09-15 13:28] LABS: Barbiturate Screen,Urine Not Detected (NotDetected); Methadone Screen, Urine Not Detected (NotDetected); Oxycodone Screen, Urine Not Detected (NotDetected)
[2022-09-15] MEDS ORDERED: LORazepam 1 MG TAB PO PRN ×2 (13:41)
[2022-09-15] MEDS ORDERED: MAG HYDROX/AL HYDROX/SIMETH 30 ML CUP PO PRN (13:41)
[2022-09-15] MEDS ORDERED: MAGNESIUM HYDROXIDE 2,400 MG/10 ML CUP PO PRN (13:41)
[2022-09-15] MEDS ORDERED: ACETAMINOPHEN TAB 325 MG TAB PO PRN (13:41)
[2022-09-15] MEDS ORDERED: HALOPERIDOL LACTATE 5 MG/ML 1 ML VIAL IM PRN (13:46)
[2022-09-15] MEDS ORDERED: haloperidoL 5 MG TAB PO PRN (13:46)
--- NOTE | 2022-09-15 16:23 | P.HPMEDMHU ---
History of Present Illness H&P Date: 09/15/22 Chief Complaint: Suicidal Idealization This is a 52-year-old female with a past medical history of alcohol use who presented to the ED with intentional overdose and suicide idealization. Patient states that she took about 10 tabs of Seroquel that belonged to her son and had been . Poison control was contacted and recommended a six-hour observation. In the ED patient was found to have alcohol level 252. Once patient was sober she was then transferred to the psych unit. Patient was also found to have hypokalemia and was given 40 mEq of potassium chloride. Currently patient is denying any chest pain. She states that she has nonproductive cough and mild nasal congestion. She states that she's had these symptoms for a week and initially thought it was a cold but now believes it is seasonal allergeis. She denies any fever. She denies any sick contacts at home. Review of Systems 10 ROS reviewed and are negative except as noted in HPI Past Medical History Past Medical History: No Reported History History of Any Multi-Drug Resistant Organisms: None Reported Past Surgical History: No Surgical Hx Reported Past Anesthesia/Blood Transfusion Reactions: No Reported Reaction Past Psychological History: Depression Smoking Status: Current every day smoker Past Alcohol Use History: Occasional Past Drug Use History: Marijuana - Past Family History Mother Family Medical History: Cancer, Hypertension Medications and Allergies Home Medications Medication Instructions Recorded Confirmed Type No Known Home Medications 09/15/22 09/15/22 History Allergies Allergy/AdvReac Type Severity Reaction Status Date / Time No Known Allergies Allergy Verified 09/15/22 08:19 Physical Exam Osteopathic Statement: *. No significant issues noted on an osteopathic structural exam other than those noted in the History and Physical/Consult. Vitals: Vital Signs Temp Pulse Resp BP BP Pulse Ox 09/15/22 15:52 98.6 F 16 139/84 99 09/15/22 06:00 93 18 110/78 95 09/15/22 02:08 100 16 150/92 98 09/15/22 02:00 101 H 29 H 160/104 97 09/15/22 00:57 98 F 112 H 14 136/79 98 Intake and Output 09/15/22 09/15/22 09/15/22 06:59 14:59 22:59 Other: Weight 90.718 kg 95.708 kg General: [Alert and oriented, well nourished, no acute distress]. Eye: [PERRL, EOMI, normal conjunctiva]. HENT: [Normocephalic, clear tympanic membranes, normal hearing, moist oral muc batool, no scleral icterus, no sinus tenderness]. Neck: [Supple, non-tender, no carotid bruits, no JVD, no lymphadenopathy]. Lungs: [Clear to auscultation and percussion, non-labored respiration]. Heart: [Normal rate, regular rhythm, no murmur, gallop or edema]. Abdomen: [Soft, non-tender, non-distended, normal bowel sounds, no masses]. Musculoskeletal: [Normal range of motion and strength, no tenderness or swelling]. Skin: [Skin is warm, dry and pink, no rashes or lesions]. Neurologic: [Awake, alert, and oriented X3, CN II-XII intact]. Psychiatric: [Cooperative, appropriate mood and affect]. Cranial Nerve Examination - Cranial Nerves Cranial Nerve I- Olfactory: Intact Cranial Nerve II- Optic: Intact Cranial Nerve III- Oculomotor: Intact Cranial Nerve IV- Trochlear: Intact Cranial Nerve V- Trigeminal: Intact Cranial Nerve - Abducens: Intact Cranial Nerve VII- Facial: Intact Cranial Nerve VIII- Auditory: Intact Cranial Nerve IX- Glossopharyngeal: Intact Cranial Nerve X- Vagus: Intact Cranial Nerve XI- Accessory: Intact Cranial Nerve XII- Hypoglossal: Intact Results CBC & Chem 7: 09/15/22 01:23 09/15/22 01:23 Labs: Abnormal Lab Results - Last 24 Hours (Table) 09/15/22 09/15/22 09/15/22 Range/Units 01:23 01:23 01:23 MCV 71.0 L (80.0-100.0) fL MCH 22.5 L (25.0-35.0) pg RDW 16.5 H (11.5-15.5) % Potassium 3.2 L (3.5-5.1) mmol/L Chloride 111 H (98-107) mmol/L Carbon Dioxide 18 L (22-30) mmol/L BUN 6 L (7-17) mg/dL Glucose 110 H (74-99) mg/dL U Tricyclic Antidepress Detected H (NotDetected) Serum Alcohol 252 H* mg/dL Assessment and Plan Assessment: Seasonal ALLERGIES We'll start the patient on Claritin Tobacco abuse Nicotine patch and patient consult on smoking cessation Alcochol abuse Patient counseled on alcohol cessation Depression and SI Your psych meds
[2022-09-15] MEDS: LORATADINE-PSEUDOEPH 5-120 MG 1 EACH TAB.ER.12H PO SCH (20:56)
[2022-09-15] MEDS: MELATONIN 5 MG TABLET PO PRN (21:31)
[2022-09-16] MEDS: LORATADINE-PSEUDOEPH 5-120 MG 1 EACH TAB.ER.12H PO SCH ×2 (09:02→20:45)
[2022-09-16] MEDS: NICOTINE 14MG/24HR PATCH TRANSDERM SCH (09:02)
[2022-09-16] MEDS ORDERED: VENLAFAXINE HCL ER 75 MG CAP PO STA (11:13)
--- NOTE | 2022-09-16 13:35 | P.HP ---
Psychiatric H&P - . H&P Date: 09/16/22 History & Physical: Allergies Allergy/AdvReac Type Severity Reaction Status Date / Time No Known Allergies Allergy Verified 09/15/22 08:19 Vital Signs Temp 97.8 F 09/16/22 06:46 Pulse 75 09/16/22 06:46 Resp 16 09/16/22 06:46 BP 139/78 09/16/22 06:46 Pulse Ox 99 09/15/22 15:52 FiO2 Intake & Output 09/15/22 09/16/22 09/16/22 18:59 06:59 18:59 Weight 95.708 kg Laboratory Last Values WBC 4.9 k/uL (3.8-10.6) 09/15/22 01: RBC 5.36 m/uL (3.80-5.40) 09/15/22 01: Hgb 12.1 gm/dL (11.4-16.0) 09/15/22 01: Hct 38.1 % (34.0-46.0) 09/15/22 01: MCV 71.0 fL (80.0-100.0) L 09/15/22 01: MCH 22.5 pg (25.0-35.0) L 09/15/22 01: MCHC 31.7 g/dL (31.0-37.0) 09/15/22 01: RDW 16.5 % (11.5-15.5) H 09/15/22 01: Plt Count 234 k/uL (150-450) 09/15/22 01: MPV 8.6 09/15/22 01: Neutrophils % 36 % 09/15/22 01:23 Lymphocytes % 48 % 09/15/22 01:23 Monocytes % 4 % 09/15/22 01: Eosinophils % 8 % 09/15/22 01: Basophils % 1 % 09/15/22 01: Neutrophils # 1.7 k/uL (1.3-7.7) 09/15/22 01: Lymphocytes # 2.3 k/uL (1.0-4.8) 09/15/22 01: Monocytes # 0.2 k/uL (0-1.0) 09/15/22 01: Eosinophils # 0.4 k/uL (0-0.7) 09/15/22 01: Basophils # 0.0 k/uL (0-0.2) 09/15/22 01: Hypochromasia Slight 09/15/22 01: Anisocytosis Slight 09/15/22 01: Microcytosis Moderate 09/15/22 01: PT 10.2 sec (9.0-12.0) 09/15/22 01: INR 1.0 (<1.2) 09/15/22 01: Sodium 145 mmol/L (137-145) 09/15/22 01: Potassium 3.2 mmol/L (3.5-5.1) L 09/15/22 01: Chloride 111 mmol/L (98-107) H 09/15/22 01: Carbon Dioxide 18 mmol/L (22-30) L 09/15/22: Anion Gap 16 mmol/L 09/15/22 01: BUN 6 mg/dL (7-17) L 09/15/22 01: Creatinine 0.72 mg/dL (0.52-1.04) 09/15/22 01: Est GFR (CKD-EPI)AfAm >90 (>60 ml/min/1.73 sqM) 09/15/22: Est GFR (CKD-EPI)NonAf >90 (>60 ml/min/1.73 sqM) 09/15/22 01: Glucose 110 mg/dL (74-99) H 09/15/22 01: Plasma Lactic Acid Mauro 2.0 mmol/L (0.7-2.0) 09/15/22 01: Calcium 8.5 mg/dL (8.4-10.2) 09/15/22: Total Bilirubin 0.2 mg/dL (0.2-1.3) 09/15/22: AST 26 U/L (14-36) 09/15/22: ALT 19 U/L (4-34) 09/15/22 01: Alkaline Phosphatase 65 U/L (38-126) 09/15/22 01: Troponin I <0.012 ng/mL (0.000-0.034) 09/15/22 01: Total Protein 7.0 g/dL (6.3-8.2) 09/15/22 01: Albumin 4.2 g/dL (3.5-5.0) 09/15/22 01: Urine Color Colorless 09/15/22 01: Urine Appearance Clear (Clear) 09/15/22 01: Urine pH 6.5 (5.0-8.0) 09/15/22 01: Ur Specific [place] 1.006 (1.001-1.035) 09/15/22 01: Urine Protein Negative (Negative) 09/15/22 01: Urine Glucose (UA) Negative (Negative) 09/15/22 01: Urine Ketones Negative (Negative) 09/15/22: Urine Blood Negative (Negative) 09/15/22: Urine Nitrite Negative (Negative) 09/15/22 01: Urine Bilirubin Negative (Negative) 09/15/22: Urine Urobilinogen <2.0 mg/dL (<2.0) 09/15/22 01: Ur Leukocyte Esterase Negative (Negative) 09/15/22 01: Urine HCG, Qual Not Detected (Not Detectd) 09/15/22 01: Salicylates <1.0 mg/dL 09/15/22 01:23 Urine Opiates Screen Not Detected (NotDetected) 09/15/22 01:23 Ur Oxycodone Screen Not Detected (NotDetected) 09/15/22 01:23 Urine Methadone Screen Not Detected (NotDetected) 09/15/22 01: Ur Propoxyphene Screen Not Detected (NotDetected) 09/15/22 01: Acetaminophen <10.0 ug/mL 09/15/22 01:23 Ur Barbiturates Screen Not Detected (NotDetected) 09/15/22 01:23 U Tricyclic Antidepress Detected (NotDetected) H 09/15/22 01:23 Ur Phencyclidine Scrn Not Detected (NotDetected) 09/15/22 01:23 Ur Amphetamines Screen Not Detected (NotDetected) 09/15/22 01:23 U Methamphetamines Scrn Not Detected (NotDetected) 09/15/22 01: U Benzodiazepines Scrn Not Detected (NotDetected) 09/15/22 01:23 Urine Cocaine Screen Not Detected (NotDetected) 09/15/22 01:23 U Marijuana (THC) Screen Not Detected (NotDetected) 09/15/22 01:23 Serum Alcohol 252 mg/dL H* 09/15/22 01:23 Coronavirus (PCR) Not Detected (Not Detectd) 09/15/22 12:43 09/16/22 13:35 IDENTIFYING DATA: Patient is a , employed, 42-year-old female who presents to our hospital after an intentional overdose on alcohol and Seroquel. HPI: Patient presented to the hospital on 09/15/2022 after intentionally overdosing on Seroquel and alcohol. The patient reports that she has been feeling increasingly overwhelmed since the end of 2019. She reports that her depression began after she gave to her last son. She states that over the past 2 years she has been dealing with increasing stress. She reports that this overdose occurred after she and her mother were arguing the patient reports that she was drinking at the time. She does admit to taking approximately 15 tablets of Seroquel and drinking 2-1/2 pints of schnapps. In regards to depressive symptoms, the patient does report that she has been crying every day, has had decreased hygiene and grooming, increased weight gain, feelings of hopelessness, helplessness, and anhedonia. She also reports excessive guilt. The patient reports that this was the first time she attempted to hurt herself. She reports that after she overdosed, she immediately regretted it and asked her to take her to the hospital. In regards other mood symptoms, the patient is not reporting any significant symptoms of bipolar disorder. She is not reporting any periods of excessive energy, grandiosity, or mood lability. She denies any history of auditory or visual hallucinations. She reports no history of paranoia or other delusions. The patient denies any significant history of physical or sexual abuse. PAST PSYCHIATRIC HISTORY: Patient states that she has been previously prescribed Celexa and Zoloft for depression. Patient denies any previous psychiatric hospitalizations. Patient denies any psychiatric outpatient follow- up. Patient reports no history of suicide attempts prior to this overdose. PMH: Past Medical History: No Reported History History of Any Multi-Drug Resistant Organisms: None Reported Past Surgical History: No Surgical Hx Reported Past Anesthesia/Blood Transfusion Reactions: No Reported Reaction Past Psychological History: Depression Smoking Status: Current every day smoker Past Alcohol Use History: Occasional Past Drug Use History: Marijuana ALLERGIES: NO KNOWN DRUG ALLERGIES CHEMICAL DEPENDENCY HISTORY: The patient reports that she smokes 2-1/2 a pack to 1 pack per day of cigarettes. She reports that she drinks twice per week and approximate 6 beers or half a pint of liquor per sitting. She reports occasional marijuana use. She denies any illicit drug use history. FAMILY PSYCHIATRIC/SUBSTANCE USE HISTORY: The patient reports that her mother is bipolar. She reports that her father was an alcoholic. SOCIAL HISTORY: Patient was born and raised in [place], [place]. She is currently to her Candelario whom she has been with for 15 years. This is her second marriage. She has 4 children. Her children are ages 24, 16, 14, and 2. 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 She has a ninth grade education. She denies any legal problems. She reports no moravian affiliation. She denies any significant history of trauma. MENTAL STATUS EXAM: General Appearance: Patient appears to be stated age is alert, directable, and attempts to cooperate. Patient appears to have fair hygiene and grooming. Behavior: Patient is seated without any agitated behavior. Patient is appropriate tearful. Speech: Patient's speech is fluent and nonpressured. Mood/Affect: Patient reports their mood is depressed, affect is congruent and tearful. Constricted. Suicidality/Homicidality: Patient is currently denying any suicidal or homicidal ideation. Perceptions: Patient denies any visual hallucinations and denies any auditory hallucinations Though content/process: There is no evidence of any delusional thought content and thought process is linear and goal-directed. Memory and concentration: AOX3, grossly intact for the purposes of this session. Can spell "WORLD" backwards Judgment and insight: Fair STRENGTHS/WEAKNESSES: Strength is that the patient reports that she has good social supports. Weakness is that the patient engages in significant alcohol use. INTELLECT: average IMPRESSIONS: Major depressive disorder, recurrent, severe Alcohol use disorder Nicotine dependence PLAN: -Patient is admitted under voluntary status to [facility] for stabilization of psychiatric symptoms and safety. Patient signed adult voluntary form and medication consent and is placed in patient's chart. -Medications : Will start patient on Effexor 75 mg by mouth daily for depression/anxiety Trazodone 100 mg daily at bedtime for insomnia -Ativan and Haldol PRN for agitation/aggression -CIWA protocol with Ativan PRN for ETOH withdrawal -Patient was counselled on substance abuse and desired to cut back on use -Patient was informed of the risks, benefits and side effects of the medication and patient verbally consented to taking the medications. Patient signed med consent form and was placed in chart. -Internal Medicine consult to perform medical evaluation and physical. -NRT - nicotine patch - on board for discharge planning. Encourage patient to participate in groups to work on coping skills. 09/16/22 13:35
[2022-09-16] MEDS ORDERED: traZODone HCL 100 MG TAB PO SCH (21:00)
[2022-09-16] MEDS: MELATONIN 5 MG TABLET PO PRN (22:36)
[2022-09-17] MEDS: VENLAFAXINE HCL ER 150 MG CAP PO SCH (09:42)
[2022-09-17] MEDS: LORATADINE-PSEUDOEPH 5-120 MG 1 EACH TAB.ER.12H PO SCH ×2 (09:42→20:44)
[2022-09-17] MEDS: NICOTINE 14MG/24HR PATCH TRANSDERM SCH (09:43)
[2022-09-17] MEDS ORDERED: LORazepam 1 MG TAB PO PRN (09:49)
--- NOTE | 2022-09-17 12:24 | P.PN ---
Progress Note - Text Progress Note Date: 09/17/22 Interval History: Patient was seen wandering the hallways and was directable and agreeable to speak with property underwriter in the office. Currently, the patient is reporting that she is feeling better. She continues to report ongoing family stressors. She is however denying any suicidal or homicidal ideation, intention, and/or plan. She reports no auditory or visual hallucinations. She has been adherent with the medications and is not endorsing any significant side effects. She does report that she had difficulty with sleep last night due to anxious thoughts and worries about her family and her interactions with her mother and son. She is otherwise not reporting any other issues or concerns this provider and denies any medical issues. Mental Status Exam: General Appearance: Patient appears to be stated age is alert, directable, and cooperative. Behavior: Patient is calmly seated without any agitated behavior. Speech: Patient's speech is fluent and nonpressured. Mood/Affect: Mood is improving mildly, affect is congruent and constricted. Suicidality/Homicidality: Patient denies having any suicidal or homicidal ideation intent or plan. Perceptions: Patient denies any visual hallucinations and denies any auditory hallucinations Though content/process: There is no evidence of any delusional thought content and thought process is linear and goal-directed. Memory and concentration: AOX3, grossly intact for the purposes of this session Judgment and insight: Improving mildly Vital Signs Temp 98 F 09/17/22 06:27 Pulse 82 09/17/22 06:27 Resp 16 09/17/22 06:27 BP 146/67 09/17/22 06:27 Pulse Ox 99 09/15/22 15:52 FiO2 Assessment Major depressive disorder, recurrent, severe Alcohol use disorder Nicotine dependence Plan: -Patient continues to meet criteria for inpatient psychiatric admission for symptom stabilization and safety. Patient has signed adult voluntary form and medication consent and was placed in patient's chart. -Medications: Increase Effexor to 150 mg by mouth daily for depression/anxiety Increase trazodone to 200 mg by mouth at bedtime for insomnia Ativan 1 mg by mouth at bedtime when necessary for anxiety/insomnia -When necessary Ativan and Haldol for agitation/aggression. -NRT - nicotine patch -SW on board for discharge planning. Encouraged the patient to participate in milieu.
[2022-09-17] MEDS: traZODone HCL 100 MG TAB PO SCH (20:44)
[2022-09-18] MEDS: LORATADINE-PSEUDOEPH 5-120 MG 1 EACH TAB.ER.12H PO SCH ×2 (08:36→21:12)
[2022-09-18] MEDS: NICOTINE 14MG/24HR PATCH TRANSDERM SCH (08:36)
[2022-09-18] MEDS: VENLAFAXINE HCL ER 150 MG CAP PO SCH (08:36)
--- NOTE | 2022-09-18 13:10 | P.PN ---
Progress Note - Text Progress Note Date: 09/18/22 Interval History: Patient was seen wandering the hallways and was directable and agreeable to speak with development writer. She states that her mood is "better ". She reports that she had trouble sleeping last night unit after taking trazodone 200 mg but says that after Ativan, her sleep has improved. Discussed the impact of alcohol on sleep. Patient states that she would like to be sober following discharge from hospitalization. Discussed triggers for substance use. Patient was agreeable with starting naltrexone for alcohol craving. She reports otherwise doing well on medications and reports no other concerns. She reports fair appetite and improved energy today. She is however denying any suicidal or homicidal ideation, intention, and/or plan. She reports no auditory or visual hallucinations. She has been adherent with the medications and is not endorsing any significant side effects. She is otherwise not reporting any other issues or concerns this provider and denies any medical issues. Mental Status Exam: General Appearance: Patient appears to be stated age is alert, directable, and cooperative. Behavior: Patient is calmly seated without any agitated behavior. Speech: Patient's speech is fluent and nonpressured. Mood/Affect: Mood is "better", affect is congruent and constricted. Suicidality/Homicidality: Patient denies having any suicidal or homicidal ideation intent or plan. Perceptions: Patient denies any visual hallucinations and denies any auditory hallucinations Though content/process: There is no evidence of any delusional thought content and thought process is linear and goal-directed. Memory and concentration: AOX3, grossly intact for the purposes of this session Judgment and insight: Improving mildly Vital Signs Temp 98 F 09/17/22 06:27 Pulse 82 09/17/22 06:27 Resp 16 09/17/22 06:27 BP 146/67 09/17/22 06:27 Pulse Ox 99 09/15/22 15:52 FiO2 Assessment Major depressive disorder, recurrent, severe Alcohol use disorder Nicotine dependence Plan: -Patient continues to meet criteria for inpatient psychiatric admission for symptom stabilization and safety. Patient has signed adult voluntary form and medication consent and was placed in patient's chart. -Medications: Effexor 150 mg by mouth daily for depression/anxiety trazodone 200 mg by mouth at bedtime for insomnia Start Naltrexone 50 mg daily Ativan 1 mg by mouth at bedtime when necessary for anxiety/insomnia and melatonin 5 mg qHS PRN for sleep CIWA protocol with Ativan PRN and thiamin -When necessary Ativan and Haldol for agitation/aggression. -NRT - nicotine patch -SW on board for discharge planning. Encouraged the patient to participate in milieu.
[2022-09-18] MEDS: NALTREXONE HCL 50 MG TAB PO SCH (14:04)
[2022-09-18] MEDS: traZODone HCL 100 MG TAB PO SCH (21:12)
[2022-09-19] MEDS: NALTREXONE HCL 50 MG TAB PO SCH (08:07)
[2022-09-19] MEDS: VENLAFAXINE HCL ER 150 MG CAP PO SCH (08:07)
[2022-09-19] MEDS: LORATADINE-PSEUDOEPH 5-120 MG 1 EACH TAB.ER.12H PO SCH (08:07)
[2022-09-19] MEDS: NICOTINE 14MG/24HR PATCH TRANSDERM SCH (08:08)
[2022-09-19 10:27] VITALS: TEMP 97.3
--- NOTE | 2022-09-19 13:41 | P.PN ---
Progress Note - Text Progress Note Date: 09/19/22 Interval History: Patient was seen wandering the hallways and was directable and agreeable to speak with commercial lines underwriter. She states that her mood is "pretty good ". Patient states that she felt nauseous and tremulous after having tried naltrexone yesterday. As a result, patient does not want to be on this medication. Discussed other alternatives including Campral for patient to consider. She states that she is otherwise doing well. She reports sleeping well with trazodone and took Ativan 1 mg as needed last night as well. She states that she will attempt to try without the Ativan tonight and this was encouraged. She reports otherwise doing well on medications and reports no other concerns. She reports fair appetite and improved energy today. She denies withdrawal symptoms from alcohol. She is however denying any suicidal or homicidal ideation, intention, and/or plan. She reports no auditory or visual hallucinations. She is otherwise not reporting any other issues or concerns this provider and denies any medical issues. Mental Status Exam: General Appearance: Patient appears to be stated age is alert, directable, and cooperative. Behavior: Patient is calmly seated without any agitated behavior. Speech: Patient's speech is fluent and nonpressured. Mood/Affect: Mood is "pretty good", affect is congruent and constricted. Suicidality/Homicidality: Patient denies having any suicidal or homicidal ideation intent or plan. Perceptions: Patient denies any visual hallucinations and denies any auditory hallucinations Though content/process: There is no evidence of any delusional thought content and thought process is linear and goal-directed. Memory and concentration: AOX3, grossly intact for the purposes of this session Judgment and insight: Improving mildly Vital Signs Temp 97.3 F L 09/19/22 06:00 Pulse 83 09/19/22 06:00 Resp 14 09/18/22 06:41 BP 119/65 09/19/22 06:00 Pulse Ox 99 09/15/22 15:52 FiO2 Intake & Output 09/18/22 09/19/22 09/19/22 18:59 06:59 18:59 Weight 92 kg Assessment Major depressive disorder, recurrent, severe Alcohol use disorder Nicotine dependence Plan: -Patient continues to meet criteria for inpatient psychiatric admission for symptom stabilization and safety. Patient has signed adult voluntary form and medication consent and was placed in patient's chart. -Medications: Effexor 150 mg by mouth daily for depression/anxiety trazodone 200 mg by mouth at bedtime for insomnia Stop Naltrexone 50 mg daily due to nausea and tremulousness. Ativan 1 mg by mouth at bedtime when necessary for anxiety/insomnia and melatonin 5 mg qHS PRN for sleep Will discontinue CIWA protocol due to scoring 0 thiamin daily -When necessary Ativan and Haldol for agitation/aggression. -NRT - nicotine patch -SW on board for discharge planning. Encouraged the patient to participate in milieu.
[2022-09-19] MEDS: traZODone HCL 100 MG TAB PO SCH (21:01)
[2022-09-19] MEDS: OXYMETAZOLINE 0.05% NASL SPRAY 1 SPRAY BOTTLE NASAL PRN (21:59)
[2022-09-20] MEDS: NICOTINE 14MG/24HR PATCH TRANSDERM SCH (08:37)
[2022-09-20] MEDS: LORATADINE-PSEUDOEPH 5-120 MG 1 EACH TAB.ER.12H PO SCH ×2 (08:38→08:41)
[2022-09-20] MEDS: OXYMETAZOLINE 0.05% NASL SPRAY 1 SPRAY BOTTLE NASAL PRN (08:39)
[2022-09-20] MEDS: VENLAFAXINE HCL ER 150 MG CAP PO SCH (08:39)
[2022-09-20] MEDS ORDERED: THIAMINE 100 MG TAB PO SCH (09:00)
--- NOTE | 2022-09-20 09:20 | P.DS ---
Providers Date of admission: 09/15/22 13:30 Attending physician: Ignacio Woods MD Consults: 09/15/22 13:41 Consult Physician Routine Consulting Provider: Gordo Ngo Consult Reason/Comments: h&p Do you want consulting provider notified?: Yes Primary care physician: Stated None - Discharge Diagnosis(es) (1) Alcohol intoxication Current Visit: Yes Status: Resolved Priority: High (2) Suicide and self-inflicted poisoning by drug or medicinal substance Current Visit: Yes Status: Resolved Priority: Low (3) Alcohol use disorder, severe, dependence Current Visit: Yes Status: Chronic Priority: High (4) Major depressive disorder Current Visit: Yes Status: Chronic Priority: High (5) Alcohol-induced mood disorder Current Visit: Yes Status: Resolved Priority: High Hospital Course: Henrietta is a 6-year-old female who presented to the emergency department on 09/15/2022 acutely intoxicated and expressing suicidal ideation. She attempted to overdose on approximately 10 tablets of Seroquel when she was intoxicated. She took approximately 10 tablets of Seroquel that belonged to her home and had been . Poison control was contacted and recommended a 6 hour observation. In the ED she hasn't a blood alcohol level of 252. She was admitted to the psychiatric unit under care of Dr. kaur. She received a comprehensive biopsychosocial assessment. The marketing regional consultant assistant city attorney completed the initial physical exam and medical history and diagnoses ALLERGY, tobacco use, alcohol use and depression with suicidal ideation. The marketing regional consultant recommended Claritin, nicotine patch, smoking cessation and counseling on alcohol cessation. The patient had minimal to no alcohol withdrawal symptoms (see with scores were 0). She purchases paradoxically in therapeutic groups and activities. Thought depressed where prescribed Effexor 150 mg for treatment of depression as well as trazodone 200 mg at bedtime for sleep. She Became Sober the Suicidal Ideation and Depression Improved. At the time of discharge, she presented as a casually groomed tall female who was pleasant, engaging and cooperative. She made eye contact and attended the interview. She had no abnormal involuntary movements. Her gait was steady. Her speech was clear, organized and focused. Her mood was brighter and stable. She denied suicidal ideation and wishes. She denied feeling hopeless, helpless or worthless. There are no psychotic symptoms. Her thinking was abstract and goal directed.. Patient Condition at Discharge: Good Plan - Discharge Summary Discharge Rx Participant: No New Discharge Prescriptions: New Loratadine-Pseudoeph 5-120 mg [Claritin-D 12 Hour] 1 each PO Q12HR tab traZODone HCL [Desyrel] 200 mg PO HS #60 tab Venlafaxine HCl ER [Effexor XR] 150 mg PO DAILY 30 Days #30 cap Thiamine [Vitamin B-1] 100 mg PO DAILY tab Nicotine 14Mg/24Hr Patch [Habitrol] 1 patch TRANSDERM DAILY patch Discharge Medication List Loratadine-Pseudoeph 5-120 mg [Claritin-D 12 Hour] 1 each PO Q12HR tab 09/20/22 [Rx] Nicotine 14Mg/24Hr Patch [Habitrol] 1 patch TRANSDERM DAILY patch 09/20/22 [Rx] Thiamine [Vitamin B-1] 100 mg PO DAILY tab 09/20/22 [Rx] Venlafaxine HCl ER [Effexor XR] 150 mg PO DAILY 30 Days #30 cap 09/20/22 [Rx] traZODone HCL [Desyrel] 200 mg PO HS #60 tab 09/20/22 [Rx] Follow up Appointment(s)/Referral(s): None,Stated [Primary Care Provider] - 1-2 days Activity/Diet/Wound Care/Special Instructions: Avoid the use of street drugs and alcohol. Take all medications as prescribed. When you are in need of refills on your medications, please contact your medical provider and/or outpatient psychiatrist to have this done. Please go to scheduled outpatient appointments for aftercare treatment. If symptoms return or become worse, call the crisis line at and/or go to the nearest emergency room for evaluation. Discharge Disposition: HOME SELF-CARE
[2022-09-20 10:57] VITALS: BP 129/77; PULSE 70; RESP 17
== END 2022-09-20 12:26 | disposition home or self-care (01) | DRG 754 ==
LOC: EC 00:48 → 3MHU 13:30
PROVIDERS: ADMIT Psychiatry & Neurology Psychiatry; ATTEND Psychiatry & Neurology Psychiatry
DX: F32.9 Major depressive disorder, single episode, unspecified (principal); E87.6 Hypokalemia; F10.229 Alcohol dependence with intoxication, unspecified; F10.24 Alcohol dependence with alcohol-induced mood disorder; F17.200 Nicotine dependence, unspecified, uncomplicated; T43.592A Poisoning by other antipsychotics and neuroleptics, intentional self-harm, initial encounter; Y90.8 Blood alcohol level of 240 mg/100 ml or more; Z63.72 Alcoholism and drug addiction in family; Z79.899 Other long term (current) drug therapy; Z81.1 Family history of alcohol abuse and dependence; Z20.822 Contact with and (suspected) exposure to COVID-19
CPT/HCPCS: 36415; 80053; 80143; 80179; 80306; 80320; 81003; 81025; 83605; 84484; 85025; 85610; 87635; 93005